=== PATIENT | female | born 2000 | race Two or more races ===

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

== ENCOUNTER → 2018-01-08 | Outpatient (REF) | payer OTHER ==
[2018-01-08 10:54] LABS: CONTROL LINE UCG INT CTR LINE PRESENT; URINE PREG TEST NEGATIVE (NEGATIVE)
[2018-01-08 11:07] LABS: APPEARANCE, URINE HAZY (CLEAR); BACTERIA, URINE AUTO NEGATIVE (NEGATIVE); BILIRUBIN, URINE AUTO NEGATIVE (NEGATIVE); BLOOD, URINE BLOOD 3+ (NEGATIVE); COLOR, URINE YELLOW (YELLOW); GLUCOSE, URINE (UA) AUTO NEGATIVE (NEGATIVE); KETONE, URINE AUTO NEGATIVE (NEGATIVE); LEUKOCYTE ESTERASE, URINE AUTO NEGATIVE (NEGATIVE); MUCUS, URINE SMALL (NEGATIVE); NITRITE, URINE AUTO NEGATIVE (NEGATIVE); PROTEIN, URINE AUTO NEGATIVE (NEGATIVE); RBC, URINE AUTO TNTC /HPF (0-3); SPECIFIC GRAVITY URINE AUTO 1.025 (1.002-1.035); SQUAMOUS EPITHELIAL CELL UR AU 4 /HPF (0-6); UROBILINOGEN, URINE AUTO 0.2 mg/dL (0.0-2.0); WBC, URINE AUTO 3 /HPF (0-3)
[2018-01-08 12:21] LABS: CHLAMYDIA DNA AMPLIFICATION NEGATIVE (NEGATIVE); GC DNA AMPLIFICATION NEGATIVE (NEGATIVE)
== END ==
LOC: M LAB 10:42
DX: O98.319 Other infections with a predominantly sexual mode of transmission complicating pregnancy, unspecified trimester (principal); Z3A.00 Weeks of gestation of pregnancy not specified
CPT/HCPCS: 84703

== ENCOUNTER → 2018-04-11 | Outpatient (CLI) | payer OTHER ==
[2018-04-13 10:12] LABS: HOMOCYST(E)INE SERUM 9.9 umol/L (0.0-15.0)
[2018-04-13 10:12] LABS: PHOSPHOLIPIDS LEVEL 183 mg/dL (150-250)
[2018-04-14 10:43] LABS: PROTEIN C ANTIGEN 98 % (60-150); PROTEIN C FUNCTIONAL ACTIVITY 99 % (73-180); PROTEIN S ANTIGEN FREE 76 % (57-157); PROTEIN S ANTIGEN TOTAL 58 % (60-150); PROTEIN S FUNCTIONAL ACTIVITY 78 % (63-140)
== END ==
LOC: M LAB 10:03
DX: D68.59 Other primary thrombophilia (principal); Z83.2 Family history of diseases of the blood and blood-forming organs and certain disorders involving the immune mechanism
CPT/HCPCS: 84311

== ENCOUNTER 2018-05-11 07:33 | Emergency (ER) | payer OTHER ==
[2018-05-11] MEDS: ONDANSETRON 4MG/2ML VIAL (J2405) IV (08:00)
[2018-05-11] MEDS: MORPHINE 2 MG/ML 1ML SYRINGE (J2270) IV ×2 (08:00→08:47)
[2018-05-11 08:07] LABS: BASO % 0.3 % (0.0-1.0); EOS % 0.2 % (0.0-3.0); HEMATOCRIT 37.6 % (36.0-47.0); HEMOGLOBIN 13.1 g/dl (12.0-15.5); IMMATURE GRANULOCYTE % 0.3 % (0-3.0); LYMPH # 1.4 10^3/uL (1.5-6.5); LYMPH % 12.9 % (24.0-44.0); MEAN CORPUSCULAR HEMOGLOBIN 29.9 pg (27.0-33.0); MEAN CORPUSCULAR HGB CONC 34.8 g/dl (32.0-36.5); MEAN CORPUSCULAR VOLUME 85.8 fl (80.0-96.0); MONO # 0.4 10^3/uL (0.0-0.8); MONO % 3.8 % (0.0-5.0); NEUTROPHILS # 8.8 10^3/uL (1.8-7.7); NEUTROPHILS % 82.5 % (36.0-66.0); PLATELET COUNT, AUTOMATED 277 10^3/uL (150-450); RED BLOOD COUNT 4.38 10^6/uL (4.00-5.40); WHITE BLOOD COUNT 10.7 10^3/uL (4.0-10.0)
[2018-05-11 08:24] LABS: CONTROL LINE HCG INT CTR LINE PRESENT; HCG, SERUM QUALITATIVE POSITIVE (NEGATIVE)
[2018-05-11 08:56] LABS: HCG, SERUM QUANTITATIVE 4745 MIU/ML
== END 2018-05-11 12:00 | disposition home or self-care (01) ==
LOC: M ED 07:33
DX: O03.4 Incomplete spontaneous abortion without complication (principal)
CPT/HCPCS: J2405

== ENCOUNTER → 2018-05-13 | Outpatient (CLI) | payer OTHER ==
[2018-05-13 14:58] LABS: HCG, SERUM QUANTITATIVE 1393 MIU/ML
== END ==
LOC: M LAB 13:52
DX: Z34.80 Encounter for supervision of other normal pregnancy, unspecified trimester (principal); Z3A.00 Weeks of gestation of pregnancy not specified
CPT/HCPCS: 84702